=== PATIENT | female | born 1965 | race Caucasian/White ===

== ENCOUNTER 2018-03-09 06:58 | Inpatient (IN) | payer OTHER ==
[2018-03-09 07:19] VITALS: BMI 29.2
[2018-03-09] MEDS ORDERED: SODIUM CHLORIDE 0.9% 1000 ML INFUS.BAG IV ONE ×2 (07:28→18:45)
[2018-03-09] MEDS ORDERED: ACETAMINOPHEN INJECTION 100 ML IVPB ONE (07:43)
[2018-03-09] MEDS ORDERED: ACETAMINOPHEN 1000 MG/100 ML VIAL (NON FORMULARY) IVPB ONE ×2 (07:43→18:55)
[2018-03-09 08:14] LABS: URINE APPEARANCE Clear; URINE BILIRUBIN 1+ (NEGATIVE); URINE COLOR Amber; URINE GLUCOSE (UA) Negative (NEGATIVE); URINE KETONE Negative (NEGATIVE); URINE LEUK ESTERASE Negative (NEGATIVE); URINE NITRITE Negative (NEGATIVE); URINE PROTEIN 1+ (NEGATIVE); URINE UROBILINOGEN 0.2 (0.2-1.0)
[2018-03-09 08:32] LABS: BASO % 0.1 % (0-2.0); EOS % 0.4 % (0-4.5); HEMATOCRIT 40.1 % (32.4-45.2); HEMOGLOBIN 13.5 GM/dl (10.7-15.3); LYMPH % 7.6 % (8-40); MCHC 33.8 g/dl (32.0-36.0); MEAN CELL VOLUME 88.8 fl (80-96); MEAN PLT VOLUME 7.8 fl (7.5-11.1); MONO % 8.3 % (3.8-10.2); NEUT % 83.6 % (42.8-82.8); PLATELET COUNT 264 K/MM3 (134-434); RBC 4.52 M/mm3 (3.60-5.2); RDW 11.8 % (11.6-15.6); WHITE BLOOD COUNT 11.4 K/mm3 (4.0-10.8)
[2018-03-09 08:37] LABS: ALBUMIN 3.8 g/dl (3.4-5.0); ALK PHOS 75 U/L (45-117); ANION GAP 10 MMOL/L (8-16); BILIRUBIN,TOTAL 2.3 mg/dl (0.2-1); BLOOD UREA NITROGEN 13 mg/dl (7-18); CALCIUM 8.8 mg/dl (8.5-10); CHLORIDE 105 mmol/L (98-107); CO2 24 mmol/L (21-32); CREATININE 0.7 mg/dl (0.55-1.3); GLUCOSE,RANDOM 104 mg/dl (74-106); POTASSIUM 3.7 mmol/L (3.5-5.1); SGOT/AST 21 U/L (15-37); SGPT/ALT 21 U/L (13-61); SODIUM 139 mmol/L (136-145); TOT PROT 6.6 g/dl (6.4-8.2)
[2018-03-09 08:38] LABS: EPI CELLS 2+ /HPF; URINE RBC 40-60 /hpf (0-3)
[2018-03-09 08:39] LABS: URINE BACTERIA 3+ /hpf (NEGATIVE)
--- NOTE | 2018-03-09 09:11 | PDOC ---
History of Present Illness - General Chief Complaint: Pain Stated Complaint: LT GROIN/FLANK PAIN Time Seen by Provider: 03/09/18 07:27 History Source: Patient Exam Limitations: No Limitations - History of Present Illness Initial Comments: 03/09/18 09:04 52 yo F with h/o diverticulitis s/p partial colectomy , hysterectomy here with c /o llq pain and flank pain. pain started 5 days ago intermittent, crampy. worse wtih movement. denies hematuria or other urinary sxs, no n/v no f did have chills night prior. no change to bowel movement. does have pain with straining to have bowel movement. no bulging or pain near abd scars. no other complaints Past History - Past Medical History Allergies/Adverse Reactions: Allergies Allergy/AdvReac Type Severity Reaction Status Date / Time No Known Allergies Allergy Unverified 03/09/18 06:59 Home Medications: Ambulatory Orders Paroxetine Mesylate [Brisdelle] 7.5 mg PO DAILY 03/09/18 COPD: No - Suicide/Smoking/Psychosocial Hx Smoking History: Never smoked Have you smoked in the past 12 months: No Information on smoking cessation initiated: No Hx Alcohol Use: No Drug/Substance Use Hx: No Review of Systems - Review of Systems Constitutional: Yes: Chills. No: Diaphoresis, Fever HEENTM: No: Eye Pain, Blurred Vision Respiratory: No: Cough, Orthopnea, Shortness of Breath Cardiac (ROS): No: Chest Pain ABD/GI: Yes: Abd. Pain w/ defecation, Abdominal cramping. No: Nausea, Indigestion : No: Burning, Dysuria, Discharge Musculoskeletal: No: Back Pain Integumentary: No: Bruising Neurological: No: Headache, Numbness Psychiatric: No: Frequent Crying All Other Systems: Reviewed and Negative *Physical Exam - Vital Signs Last Vital Signs Temp Pulse Resp BP Pulse Ox 99.2 F 103 H 20 107/62 100 03/09/18 06:59 03/09/18 06:59 03/09/18 06:59 03/09/18 06:59 03/09/18 06:59 - Physical Exam Comments: 03/09/18 09:09 awake alert lungs clear bilaterally heart rrr no mrg abd soft mild llq ttp, left flank ttp, no rebound no guarding. small area redness, petechia llq, no eccymosis. no palp hernia. ext wwp no edema. no calf tenderness. Moderate Sedation - Procedure Monitoring Vital Signs: Procedure Monitoring Vital Signs Temperature 99.2 F 03/09/18 06:59 Pulse Rate 103 H 03/09/18 06:59 Respiratory Rate 20 03/09/18 06:59 Blood Pressure 107/62 03/09/18 06:59 O2 Sat by Pulse Oximetry (%) 100 03/09/18 06:59 ED Treatment Course - LABORATORY CBC & Chemistry Diagram: 03/09/18 07:46 03/09/18 07:46 - ADDITIONAL ORDERS Additional order review: Laboratory Results 03/09/18 03/09/18 07:46 07:31 Sodium 139 Potassium 3.7 Chloride 105 Carbon Dioxide 24 Anion Gap 10 BUN 13 Creatinine 0.7 Creat Clearance w eGFR > 60 Random Glucose 104 Calcium 8.8 Total Bilirubin 2.3 H AST 21 ALT 21 Alkaline Phosphatase 75 Total Protein 6.6 Albumin 3.8 Urine Color Olivia Urine Appearance Clear Urine pH 6.0 Ur Specific [place] 1.020 Urine Protein 1+ H Urine Glucose (UA) Negative Urine Ketones Negative Urine Blood 2+ H Urine Nitrite Negative Urine Bilirubin 1+ H Urine Urobilinogen 0.2 Ur Leukocyte Esterase Negative Urine RBC 40-60 Urine WBC 2-5 Ur Epithelial Cells 2+ Urine Bacteria 3+ 03/09/18 07:46 RBC 4.52 MCV 88.8 MCHC 33.8 RDW 11.8 MPV 7.8 Neutrophils % 83.6 H Lymphocytes % 7.6 L Monocytes % 8.3 Eosinophils % 0.4 Basophils % 0.1 - RADIOLOGY Radiology Studies Ordered: Category Date Time Status ABDOMEN & PELVIS CT WITH CONTR [CT] Stat CT Scan 03/09/18 07:29 Ordered - Medications Given in the ED: ED Medications Discontinued Medications Generic Name Dose Route Start Last Admin Trade Name Freq PRN Reason Stop Dose Admin Acetaminophen 1,000 mg 03/09/18 07:43 03/09/18 07:47 Ofirmev Injection - IVPB 03/09/18 07:44 1,000 mg ONCE ONE Administration Sodium Chloride 1,000 ml 03/09/18 07:28 03/09/18 07:47 Normal Saline - IV 03/09/18 07:29 1,000 ml ONCE ONE Administration Medical Decision Making - Medical Decision Making 03/09/18 09:11 differential diverticulitis, sbo, pyleonephritis, renal colic, hernia, although no palp hernia on exam. plan ct a/p labs ua . pain control with tylenol. ivf. 03/09/18 10:04 focused ED us RUQ performed, indication elevated Bili gallbladder scanned in two planes. no stones, wall thickening , edema or pericholecystic fluid noted. normal CBD 2.8 cm normal wall thickness < 4mm impression: normal gallbladder bilateral renal exam performed. indcation flank pain. bilateral kidneys scanned using phased array probe no cyst, no hydronephrosis noted. no peritoneal free fluid. impression: normal renal ultrasound FAST no free abdominal fluid, no pericardial fluid. no thoracic free fluid. plan ct a/p with iv contrast . will add LDH as bilirubin elevated. pt not anemic . awaiting ct a/p 03/09/18 11:45 pt with diverticultiis. significant pain. given morphine. paged. pt dr dr lantigua. paged. awaiting call back. hospitalist paged for admission observation due to significant pain. *DC/Admit/Observation/Transfer Diagnosis at time of Disposition: Diverticulitis - Discharge Dispostion Condition at time of disposition: Stable Decision to Admit order: Yes - Referrals Referrals: Rajeev Lantigua [Primary Care Provider] - - Patient Instructions - Post Discharge Activity
[2018-03-09 10:40] LABS: BILIRUBIN,DIRECT 0.3 mg/dL (0.0-0.2)
[2018-03-09] MEDS ORDERED: CIPROFLOXACIN 400 MG/D5W 400 MG/200 ML IVPB IVPB ONE (11:42)
[2018-03-09] MEDS ORDERED: morphine CARPU-JECT 4 MG/1 ML DISP.SYRIN IVPUSH ONE (11:42)
[2018-03-09] MEDS ORDERED: morphine SULFATE 4 MG/ML VIAL ONE (11:52)
[2018-03-09] MEDS: SODIUM CHLORIDE 1,000 ML IV SCH (13:08)
[2018-03-09 13:22] LABS: LIPASE 187 U/L (73-393)
[2018-03-09] MEDS: morphine CARPU-JECT 2 MG/1 ML DISP.SYRIN IVPUSH PRN (15:10)
[2018-03-09] MEDS ORDERED: morphine CARPU-JECT 2 MG/1 ML DISP.SYRIN ONE (15:12)
--- NOTE | 2018-03-09 16:04 | HP ---
CHIEF COMPLAINT:LLQ abd pain PCP:Dr. Lantigua ([facility]) HISTORY OF PRESENT ILLNESS: Jane Matamoros is a 52 yo F with h/o diverticulitis s/p partial colectomy , hysterectomy here with c/o llq pain and flank pain. pain started 5 days ago intermittent, crampy. worse with movement. denies hematuria or other urinary sxs, no n/v no f did have chills night prior. no change to bowel movement. does have pain with straining to have bowel movement. no bulging or pain near abd scars. no other complaints, CT shows diverticulitis ER course was notable for: (1)no fever (2)abd pain (3) Recent Travel: PAST MEDICAL HISTORY:hx of diverticulitis PAST SURGICAL HISTORY:s/p partial colectomy , hysterectomy, hernia repair Social History: Smoking: Alcohol:denies Drugs: Denies Family History: Allergies No Known Allergies Allergy (Unverified 03/09/18 06:59) HOME MEDICATIONS: Home Medications Medication Instructions Recorded Paroxetine Mesylate [Brisdelle] 7.5 mg PO DAILY 03/09/18 REVIEW OF SYSTEMS CONSTITUTIONAL: Absent: fever, chills, diaphoresis, generalized weakness, malaise, loss of appetite, weight change HEENT: Absent: rhinorrhea, nasal congestion, throat pain, throat swelling, difficulty swallowing, mouth swelling, ear pain, eye pain, visual changes CARDIOVASCULAR: Absent: chest pain, syncope, palpitations, irregular heart rate, lightheadedness , peripheral edema RESPIRATORY: Absent: cough, shortness of breath, dyspnea with exertion, orthopnea, wheezing, stridor, hemoptysis GASTROINTESTINAL: Absent: abdominal pain, abdominal distension, nausea, vomiting, diarrhea, constipation, melena, hematochezia GENITOURINARY: Absent: dysuria, frequency, urgency, hesitancy, hematuria, flank pain, genital pain MUSCULOSKELETAL: Absent: myalgia, arthralgia, joint swelling, back pain, neck pain SKIN: Absent: rash, itching, pallor HEMATOLOGIC/IMMUNOLOGIC: Absent: easy bleeding, easy bruising, lymphadenopathy, frequent infections ENDOCRINE: Absent: unexplained weight gain, unexplained weight loss, heat intolerance, cold intolerance NEUROLOGIC: Absent: headache, focal weakness or paresthesias, dizziness, unsteady gait, seizure, mental status changes, bladder or bowel incontinence PSYCHIATRIC: Absent: anxiety, depression, suicidal or homicidal ideation, hallucinations. PHYSICAL EXAMINATION Vital Signs - 24 hr 03/09/18 03/09/18 03/09/18 06:59 11:20 13:12 Temperature 99.2 F 98.6 F 98.6 F Pulse Rate 103 H Pulse Rate [ 69 60 Left] Respiratory 20 20 20 Rate Blood Pressure 107/62 Blood Pressure 99/59 L 99/59 L [Right Arm] O2 Sat by Pulse 100 98 99 Oximetry (%) 03/09/18 14:41 Temperature 97.7 F Pulse Rate 78 Pulse Rate [ Left] Respiratory 18 Rate Blood Pressure 99/52 L Blood Pressure [Right Arm] O2 Sat by Pulse Oximetry (%) GENERAL: Awake, alert, and fully oriented, in no acute distress. HEAD: Normal with no signs of trauma. EYES: Pupils equal, round and reactive to light, extraocular movements intact, sclera anicteric, conjunctiva clear. No lid lag. EARS, NOSE, THROAT: Ears normal, nares patent, oropharynx clear without exudates. Moist mucous membranes. NECK: Normal range of motion, supple without lymphadenopathy, JVD, or masses. LUNGS: Breath sounds equal, clear to auscultation bilaterally. No wheezes, and no crackles. No accessory muscle use. HEART: Regular rate and rhythm, normal S1 and S2 without murmur, rub or gallop. ABDOMEN: Soft, nontender, not distended, normoactive bowel sounds, no guarding, no rebound, no masses. No hepatomegaly or splenomegaly. MUSCULOSKELETAL: Normal range of motion at all joints. No bony deformities or tenderness. No CVA tenderness. UPPER EXTREMITIES: 2+ pulses, warm, well-perfused. No cyanosis. No clubbing. No peripheral edema. LOWER EXTREMITIES: 2+ pulses, warm, well-perfused. No calf tenderness. No peripheral edema. NEUROLOGICAL: Cranial nerves II-XII intact. Normal speech. Normal gait. PSYCHIATRIC: Cooperative. Good eye contact. Appropriate mood and affect. SKIN: Warm, dry, normal turgor, no rashes or lesions noted, normal capillary refill. Laboratory Results - last 24 hr 03/09/18 03/09/18 03/09/18 07:31 07:35 07:46 WBC 11.4 H RBC 4.52 Hgb 13.5 Hct 40.1 MCV 88.8 MCH 30.0 MCHC 33.8 RDW 11.8 Plt Count 264 MPV 7.8 Absolute Neuts (auto) 9.6 Neutrophils % 83.6 H Lymphocytes % 7.6 L Monocytes % 8.3 Eosinophils % 0.4 Basophils % 0.1 Sodium Potassium Chloride Carbon Dioxide Anion Gap BUN Creatinine Creat Clearance w eGFR Random Glucose Calcium Total Bilirubin Direct Bilirubin 0.3 H AST ALT Alkaline Phosphatase LD Total 173 Total Protein Albumin Lipase Urine Color Olivia Urine Appearance Clear Urine pH 6.0 Ur Specific [place] 1.020 Urine Protein 1+ H Urine Glucose (UA) Negative Urine Ketones Negative Urine Blood 2+ H Urine Nitrite Negative Urine Bilirubin 1+ H Urine Urobilinogen 0.2 Ur Leukocyte Esterase Negative Urine RBC 40-60 Urine WBC 2-5 Ur Epithelial Cells 2+ Urine Bacteria 3+ 03/09/18 07:46 WBC RBC Hgb Hct MCV MCH MCHC RDW Plt Count MPV Absolute Neuts (auto) Neutrophils % Lymphocytes % Monocytes % Eosinophils % Basophils % Sodium 139 Potassium 3.7 Chloride 105 Carbon Dioxide 24 Anion Gap 10 BUN 13 Creatinine 0.7 Creat Clearance w eGFR > 60 Random Glucose 104 Calcium 8.8 Total Bilirubin 2.3 H Direct Bilirubin AST 21 ALT 21 Alkaline Phosphatase 75 LD Total Total Protein 6.6 Albumin 3.8 Lipase 187 Urine Color Urine Appearance Urine pH Ur Specific [place] Urine Protein Urine Glucose (UA) Urine Ketones Urine Blood Urine Nitrite Urine Bilirubin Urine Urobilinogen Ur Leukocyte Esterase Urine RBC Urine WBC Ur Epithelial Cells Urine Bacteria ASSESSMENT/PLAN: Coretta Matamoros is a 52 h/o diverticulitis s/p partial colectomy , hysterectomy admitted under observation for Admitting Diagnosis Acute Diverticulitis A/P: #Acute diverticulitis -admit under observation -NPO -pain mgt, morphine 2mg -IVF -IV cipro, flagyl -cultures pending #menopause, hot flashes -takes paroxetine Full Code Dispo: requires inpt treatment DVT prophylaxis Heparin SQ Visit type - Emergency Visit Emergency Visit: Yes ED Registration Date: 03/09/18 Care time: The patient presented to the Emergency Department on the above date and was hospitalized for further evaluation of their emergent condition. - New Patient This patient is new to me today: Yes Date on this admission: 03/09/18 - Critical Care Critical Care patient: No
--- NOTE | 2018-03-09 16:50 | EKG ---
Test Reason : Blood Pressure : / mmHG Vent. Rate : 073 BPM Atrial Rate : 073 BPM P-R Int : 164 ms QRS Dur : 078 ms QT Int : 426 ms P-R-T Axes : 047 023 008 degrees QTc Int : 469 ms NORMAL SINUS RHYTHM NORMAL ECG NO PREVIOUS ECGS AVAILABLE Confirmed by Karlie Ardon ([id number]) on 03/09/2018 4:49:56 PM Referred By: Sukhdeep Grigsby Confirmed By:Karlie Ardon
[2018-03-09] MEDS ORDERED: DEXTROSE 5%-WATER - 50 ML IVPB ONE (16:58)
[2018-03-09] MEDS ORDERED: PIPERACILLIN/TAZOBACTAM 3.375 GM VIAL IVPB ONE (16:58)
[2018-03-09] MEDS: PIPERACILLIN/TAZOB 3.375 GM 3.375 GM in DEXTROSE 5%-WATER - 50 ML IVPB SCH (17:17)
[2018-03-09 19:54] LABS: BASO % 0.1 % (0-2.0); EOS % 0.3 % (0-4.5); HEMATOCRIT 42.3 % (32.4-45.2); HEMOGLOBIN 14.1 GM/dl (10.7-15.3); LYMPH % 11.8 % (8-40); MCH 29.6 pg (25.7-33.7); MCHC 33.3 g/dl (32.0-36.0); MEAN CELL VOLUME 89.1 fl (80-96); MEAN PLT VOLUME 7.7 fl (7.5-11.1); MONO % 3.3 % (3.8-10.2); NEUT % 84.5 % (42.8-82.8); PLATELET COUNT 334 K/MM3 (134-434); RBC 4.75 M/mm3 (3.60-5.2); RDW 11.9 % (11.6-15.6); WHITE BLOOD COUNT 14.2 K/mm3 (4.0-10.8)
[2018-03-09 19:58] LABS: ALBUMIN 3.7 g/dl (3.4-5.0); ALK PHOS 85 U/L (45-117); ANION GAP 5 MMOL/L (8-16); BILIRUBIN,TOTAL 2.6 mg/dl (0.2-1); BLOOD UREA NITROGEN 8 mg/dl (7-18); CALCIUM 8.6 mg/dl (8.5-10); CHLORIDE 107 mmol/L (98-107); CO2 25 mmol/L (21-32); CREATININE 0.7 mg/dl (0.55-1.3); GLUCOSE,RANDOM 94 mg/dl (74-106); SGOT/AST 27 U/L (15-37); SGPT/ALT 23 U/L (13-61); SODIUM 137 mmol/L (136-145); TOT PROT 6.9 g/dl (6.4-8.2)
[2018-03-09] MEDS ORDERED: SODIUM CHLORIDE 1,000 ML IV STA (20:51)
[2018-03-09] MEDS: HEPARIN NA (PORCINE) 5,000 UNITS/ML 1ML VIAL SQ SCH (21:26)
[2018-03-09] MEDS ORDERED: CIPROFLOXACIN 400 MG/D5W 400 MG/200 ML IVPB IVPB SCH (22:00)
[2018-03-10] MEDS ORDERED: ACETAMINOPHEN 1000 MG/100 ML VIAL (NON FORMULARY) IVPB PRN (01:00)
[2018-03-10] MEDS ORDERED: PIPERACILLIN/TAZOBACTAM 3.375 GM VIAL IVPB ONE ×3 (01:52→17:15)
[2018-03-10] MEDS ORDERED: DEXTROSE 5%-WATER - 50 ML IVPB ONE ×3 (01:53→17:15)
[2018-03-10] MEDS: PIPERACILLIN/TAZOB 3.375 GM 3.375 GM in DEXTROSE 5%-WATER - 50 ML IVPB SCH ×3 (02:00→17:21)
[2018-03-10] MEDS: morphine CARPU-JECT 2 MG/1 ML DISP.SYRIN IVPUSH PRN (09:42)
[2018-03-10] MEDS: SODIUM CHLORIDE 1,000 ML IV SCH ×2 (09:44→13:43)
[2018-03-10] MEDS: HEPARIN NA (PORCINE) 5,000 UNITS/ML 1ML VIAL SQ SCH ×2 (09:50→21:56)
[2018-03-10 10:03] LABS: HEMATOCRIT 35.4 % (32.4-45.2); HEMOGLOBIN 11.7 GM/dl (10.7-15.3); MCH 29.5 pg (25.7-33.7); MEAN CELL VOLUME 89.5 fl (80-96); MEAN PLT VOLUME 7.8 fl (7.5-11.1); PLATELET COUNT 220 K/MM3 (134-434); RBC 3.96 M/mm3 (3.60-5.2); RDW 12.1 % (11.6-15.6); WHITE BLOOD COUNT 9.9 K/mm3 (4.0-10.8)
[2018-03-10 10:29] LABS: ALBUMIN 2.8 g/dl (3.4-5.0); ALK PHOS 69 U/L (45-117); ANION GAP 9 MMOL/L (8-16); BILIRUBIN,TOTAL 2.3 mg/dl (0.2-1); BLOOD UREA NITROGEN 7 mg/dl (7-18); CALCIUM 7.9 mg/dl (8.5-10); CHLORIDE 108 mmol/L (98-107); CO2 22 mmol/L (21-32); CREATININE 0.6 mg/dl (0.55-1.3); GLUCOSE,RANDOM 66 mg/dl (74-106); MAGNESIUM 1.9 mg/dL (1.8-2.4); POTASSIUM 3.3 mmol/L (3.5-5.1); SGOT/AST 22 U/L (15-37); SGPT/ALT 19 U/L (13-61); SODIUM 139 mmol/L (136-145); TOT PROT 5.4 g/dl (6.4-8.2)
[2018-03-10] MEDS ORDERED: POTASSIUM CHLORIDE TABS 20 MEQ TABLET.ER (FP) PO ONE (10:43)
--- NOTE | 2018-03-10 11:23 | CON.ID ---
Consult - History of Present Illness History of Present Illness: 53 y.o. female with PMH of recurrent diverticulitis s/p partial colectomy 8-9 yrs ago and hysterectomy presents with c/o LLQ pain that began 4 days [employer]. Pt states the pain progressively worsened and was crampy 10/10 intensity and she felt bloated. She denied fever/chills or n/v/d or bloody BMs at home during this period. In the ER patient was noted to mild leukocytosis and was afebrile but last night had temp of 102.2F and was hypotensive. Today she states she had several loose BMs which began post contrast for CT abdomen. Currently her abdominal pain is controlled and she is afebrile. She has no other specific complaints. is at bedside. - History Source History Provided By: Patient Limitations to Obtaining History: No Limitations - Past Medical History Gastrointestinal: Yes: Diverticulitis ...LMP: 02/05/07 ...LMP Comment: s/p hysterectomy - Past Surgical History Past Surgical History: Yes: Colectomy (partial), Hysterectomy - Alcohol/Substance Use Hx Alcohol Use: No - Smoking History Smoking history: Never smoked Have you smoked in the past 12 months: No Home Medications - Allergies Allergies/Adverse Reactions: Allergies Allergy/AdvReac Type Severity Reaction Status Date / Time No Known Allergies Allergy Unverified 03/09/18 06:59 - Home Medications Home Medications: Ambulatory Orders Paroxetine Mesylate [Brisdelle] 7.5 mg PO DAILY 03/09/18 Review of Systems - Review of Systems Constitutional: reports: No Symptoms. denies: Chills, Diaphoresis, Fever, Lethargy, Loss of Appetite, Malaise, Night Sweats, Unintentional Wgt. Loss, Weakness, Other Eyes: reports: No Symptoms. denies: Blind Spots, Blurred Vision, Double Vision , Eye Pain, Floaters, Photophobia, Recent Change in Vision, Other HENT: reports: No Symptoms. denies: Difficult Swallowing, Ear Discharge, Ear Pain, Epistaxis, Gingival Bleeding, Hearing Loss, Mouth Swelling, Nasal Congestion, Ocular Prosthesis, Throat Pain, Toothache, Ringing in Ears, Other Neck: reports: No Symptoms. denies: Decreased ROM, Lumps, Pain on Movement, Stiffness, Swollen Glands, Tenderness, Other Cardiovascular: reports: No Symptoms. denies: Chest Pain, Edema, Palpitations, Shortness of Breath, Other Respiratory: reports: No Symptoms. denies: Cough, Exercise Intolerance, Hemoptysis, Orthopnea, PND, Snoring, SOB, SOB on Exertion, Wheezing, Other Gastrointestinal: reports: Abdominal Pain (Lt abdomen to flank), Diarrhea Genitourinary: reports: No Symptoms. denies: Burning, Discharge, Dysuria, Flank Pain, Frequency, Hematuria, Incontinence, Lesions, Menses, Pain, Testicular Mass, Testicular Pain, Testicular Swelling, Urgency, Vaginal Bleeding , Other Breasts: reports: No Symptoms Reported. denies: See HPI, Breast Implants, Discharge from Nipple, Lumps, Pain, Skin Changes, Other Musculoskeletal: reports: No Symptoms. denies: Back Pain, Crepitus, Decreased ROM, Extremity Pain, Joint Pain, Joint Swelling, Muscle Pain, Muscle Cramps, Muscle Weakness, Other Integumentary: reports: No Symptoms. denies: Blister, Bruising, Change in Color , Eczema, Erythema, Incision, Lesions, Lump, Pallor, Pruritis, Rash, Wound, Other Neurological: reports: No Symptoms. denies: Change in LOC, Change in Speech, Confusion, Dizziness, Headache, Incoordination, Numbness, Parasthesia, Pre- Existing Deficit, Seizure, Syncope, Tremors, Unsteady Gait, Weakness, Other Endocrine: reports: No Symptoms. denies: Excessive Sweating, Flushing, Increased Hunger, Increased Thirst, Intolerance to Cold, Intolerance to Heat, Unexplained Weight Gain, Unexplained Weight Loss, Other Hematology/Lymphatic: reports: No Symptoms. denies: Easily Bruised, Excessive Bleeding, Swollen Glands, Other Psychiatric: reports: No Symptoms. denies: Altered Sleep Pattern, Anxiety, Depression, Hallucinations, Panic, Paranoia, Suicidal, Other Pain Intensity: 1 Physical Exam Vital Signs: Vital Signs Temperature 98.5 F 03/10/18 09:54 Pulse Rate 85 03/10/18 09:54 Respiratory Rate 18 03/10/18 09:54 Blood Pressure 109/52 L 03/10/18 09:54 O2 Sat by Pulse Oximetry (%) 95 03/10/18 09:00 Constitutional: Yes: No Distress, Calm Eyes: Yes: Conjunctiva Clear, EOM Intact HENT: Yes: Atraumatic, Normocephalic Neck: Yes: Supple, Trachea Midline Cardiovascular: Yes: Regular Rate and Rhythm Respiratory: Yes: CTA Bilaterally Gastrointestinal: Yes: Normal Bowel Sounds, Soft, Tenderness (Lt abdomen/flank ttp) Renal/: Yes: WNL. No: Anuria, Bladder Distention, CVA Tenderness - Left, CVA Tenderness - Right, Castillo Present, Hematuria, Incontinence, Menses Present, Oliguria, Polyuria, , Scrotal Edema, Urethral Discharge, Vaginal Bleeding, Vaginal Discharge, Other Musculoskeletal: Yes: WNL. No: Back Pain, Joint Stiffness, Joint Swelling, Muscle Pain, Muscle Weakness, Other Extremities: Yes: WNL. No: Amputation, Calf Tenderness, Cold, Cool, Cyanosis, Deformity, Delayed Capillary Refill, Erythema, External Rotation, Internal Rotation, Pallor, Shortened, Other Edema: No Integumentary: Yes: WNL Neurological: Yes: Alert, Oriented Psychiatric: Yes: Alert Labs: CBC, BMP 03/10/18 08:00 03/10/18 08:00 Microbiology 03/09/18 07:31 Urine - Urine Clean Catch Urine Culture - Final Contaminated: Please Repeat Blood cultures - pending Imaging - Results Cat Scan: Report Reviewed (distal descending colon diverticulitis) Problem List - Problems (1) Diverticulitis Code(s): K57.92 - DVTRCLI OF INTEST, PART UNSP, W/O PERF OR ABSCESS W/O BLEED Assessment/Plan 52 y.o. female with PMH of diverticulitis s/p partial colectomy and hysterectomy presents with c/o severe LLQ/flank tenderness. Febrile to 102.2 last night and leukocytosis and hypotension Acute diverticulitis -- continue Zosyn -- monitor wbc/temperatures -- follow up blood cultures -- BP currently stable, afebrile this a.m. Will follow Thank you
--- NOTE | 2018-03-10 11:27 | PN ---
Physical Exam: SUBJECTIVE: Patient seen and examined, family member present, pt still with abd pain on movement, requiring IV pain med, having diarrhea since CT contrast yesterday, GI consult placed. WBC trending down OBJECTIVE: Vital Signs Period Temp Pulse Resp BP Sys/[place] Pulse Ox Last 24 Hr 97.7 F-102.2 F 60-130 18-24 85-109/46-59 95-99 GENERAL: The patient is awake, alert, and fully oriented, in no acute distress. HEAD: Normal with no signs of trauma. EYES: PERRL, extraocular movements intact, sclera anicteric, conjunctiva clear. No ptosis. ENT: Ears normal, nares patent, oropharynx clear without exudates, moist mucous membranes. NECK: Trachea midline, full range of motion, supple. LUNGS: Breath sounds equal, clear to auscultation bilaterally, no wheezes, no crackles, no accessory muscle use. HEART: Regular rate and rhythm, S1, S2 without murmur, rub or gallop. ABDOMEN: Soft, nontender, nondistended, normoactive bowel sounds, no guarding, no rebound, no hepatosplenomegaly, no masses. EXTREMITIES: 2+ pulses, warm, well-perfused, no edema. NEUROLOGICAL: Cranial nerves II through XII grossly intact. Normal speech, gait not observed. PSYCH: Normal mood, normal affect. SKIN: Warm, dry, normal turgor, no rashes or lesions noted Laboratory Results - last 24 hr 03/09/18 03/09/18 03/09/18 07:46 19:05 19:05 WBC 14.2 H RBC 4.75 Hgb 14.1 Hct 42.3 MCV 89.1 MCH 29.6 MCHC 33.3 RDW 11.9 Plt Count 334 MPV 7.7 Absolute Neuts (auto) 12.0 Neutrophils % 84.5 H Lymphocytes % 11.8 Monocytes % 3.3 L Eosinophils % 0.3 Basophils % 0.1 Sodium 137 Potassium 4.0 Chloride 107 Carbon Dioxide 25 Anion Gap 5 L BUN 8 Creatinine 0.7 Creat Clearance w eGFR > 60 Random Glucose 94 Lactic Acid Calcium 8.6 Magnesium Total Bilirubin 2.6 H AST 27 ALT 23 Alkaline Phosphatase 85 D Total Protein 6.9 Albumin 3.7 Lipase 187 03/09/18 03/09/18 03/10/18 19:05 23:20 08:00 WBC 9.9 RBC 3.96 Hgb 11.7 Hct 35.4 D MCV 89.5 MCH 29.5 MCHC 33.0 RDW 12.1 Plt Count 220 MPV 7.8 Absolute Neuts (auto) Neutrophils % Lymphocytes % Monocytes % Eosinophils % Basophils % Sodium Potassium Chloride Carbon Dioxide Anion Gap BUN Creatinine Creat Clearance w eGFR Random Glucose Lactic Acid 3.0 H* 0.6 Calcium Magnesium Total Bilirubin AST ALT Alkaline Phosphatase Total Protein Albumin Lipase 03/10/18 08:00 WBC RBC Hgb Hct MCV MCH MCHC RDW Plt Count MPV Absolute Neuts (auto) Neutrophils % Lymphocytes % Monocytes % Eosinophils % Basophils % Sodium 139 Potassium 3.3 L Chloride 108 H Carbon Dioxide 22 Anion Gap 9 BUN 7 Creatinine 0.6 Creat Clearance w eGFR > 60 Random Glucose 66 L Lactic Acid Calcium 7.9 L Magnesium 1.9 Total Bilirubin 2.3 H AST 22 ALT 19 Alkaline Phosphatase 69 D Total Protein 5.4 L Albumin 2.8 L Lipase Active Medications Generic Name Dose Route Start Last Admin Trade Name Freq PRN Reason Stop Dose Admin Acetaminophen 1,000 mg 03/10/18 01:00 03/10/18 09:43 Ofirmev Injection - IVPB 1,000 mg Q6H PRN Administration FEVER Heparin Sodium (Porcine) 5,000 unit 03/09/18 22:00 03/10/18 09:50 Heparin - SQ Not Given BID RICH Sodium Chloride 1,000 mls @ 75 mls/hr 03/09/18 12:30 03/10/18 09:44 Normal Saline - IV 75 mls/hr ASDIR RICH Administration Piperacillin Sod/Tazobactam 50 mls @ 100 mls/hr 03/09/18 18:00 03/10/18 09:44 Sod 3.375 gm/ Dextrose IVPB 100 mls/hr Q8H-IV RICH Administration Morphine Sulfate 2 mg 03/09/18 15:04 03/10/18 09:42 Morphine Injection - IVPUSH 2 mg Q4H PRN Administration PAIN LEVEL 7 - 10 Non-Formulary Medication 7.5 mg 03/10/18 10:00 Paroxetine Mesylate [Brisdelle] PO DAILY [facility] ASSESSMENT/PLAN: Coretta Matamoros is a 52 h/o diverticulitis s/p partial colectomy , hysterectomy admitted under observation for Admitting Diagnosis Acute Diverticulitis A/P: #Acute diverticulitis -will adv diet to clears -pain mgt, morphine 2mg -IVF -IV zosyn -GI, ID consult -blood cx pending -urine cx contaminated #menopause, hot flashes -takes paroxetine Full Code Dispo: requires inpt treatment DVT prophylaxis Heparin SQ Visit type - Emergency Visit Emergency Visit: Yes ED Registration Date: 03/09/18 Care time: The patient presented to the Emergency Department on the above date and was hospitalized for further evaluation of their emergent condition. - New Patient This patient is new to me today: No - Critical Care Critical Care patient: No
[2018-03-10] MEDS: PAROXETINE MESYLATE 7.5 MG PO SCH (11:28)
[2018-03-10] MEDS ORDERED: morphine SULFATE 4 MG/ML VIAL IVPUSH PRN (11:40)
[2018-03-10] MEDS: SODIUM CHLORIDE 0.9% 1000 ML INFUS.BAG IV SCH (13:44)
[2018-03-10] MEDS: ONDANSETRON 4 MG/2 ML VIAL IVPUSH PRN ×2 (14:12→20:20)
[2018-03-10] MEDS: ACETAMINOPHEN 325 MG TABLET (FP) PO PRN (17:21)
[2018-03-11] MEDS: PIPERACILLIN/TAZOB 3.375 GM 3.375 GM in DEXTROSE 5%-WATER - 50 ML IVPB SCH ×3 (02:24→18:26)
[2018-03-11] MEDS ORDERED: PIPERACILLIN/TAZOBACTAM 3.375 GM VIAL IVPB ONE ×3 (03:10→17:47)
[2018-03-11] MEDS ORDERED: DEXTROSE 5%-WATER - 50 ML IVPB ONE ×3 (03:10→17:47)
[2018-03-11] MEDS: SODIUM CHLORIDE 0.9% 1000 ML INFUS.BAG IV SCH (10:00)
[2018-03-11 10:21] LABS: HEMATOCRIT 37.6 % (32.4-45.2); HEMOGLOBIN 12.7 GM/dl (10.7-15.3); MCH 29.5 pg (25.7-33.7); MCHC 33.7 g/dl (32.0-36.0); MEAN CELL VOLUME 87.4 fl (80-96); MEAN PLT VOLUME 7.1 fl (7.5-11.1); PLATELET COUNT 311 K/MM3 (134-434); RDW 11.8 % (11.6-15.6); WHITE BLOOD COUNT 7.2 K/mm3 (4.0-10.8)
[2018-03-11] MEDS: PAROXETINE MESYLATE 7.5 MG PO SCH (10:43)
[2018-03-11 10:47] LABS: ALBUMIN 3.2 g/dl (3.4-5.0); ALK PHOS 70 U/L (45-117); ANION GAP 10 MMOL/L (8-16); BILIRUBIN,DIRECT 0.2 mg/dL (0.0-0.2); BILIRUBIN,TOTAL 1.5 mg/dl (0.2-1); CALCIUM 8.6 mg/dl (8.5-10); CHLORIDE 104 mmol/L (98-107); CO2 23 mmol/L (21-32); CREATININE 0.7 mg/dl (0.55-1.3); GLUCOSE,RANDOM 110 mg/dl (74-106); MAGNESIUM 1.9 mg/dL (1.8-2.4); POTASSIUM 3.3 mmol/L (3.5-5.1); SGOT/AST 22 U/L (15-37); SGPT/ALT 19 U/L (13-61); SODIUM 137 mmol/L (136-145); TOT PROT 6.1 g/dl (6.4-8.2)
[2018-03-11 10:53] LABS: BLOOD UREA NITROGEN < 5 mg/dl (7-18)
[2018-03-11 11:12] LABS: PLATELET ESTIMATE ADEQUATE
[2018-03-11] MEDS: HEPARIN NA (PORCINE) 5,000 UNITS/ML 1ML VIAL SQ SCH ×2 (11:27→21:11)
--- NOTE | 2018-03-11 12:15 | PN ---
Progress Note (short form) - Note Progress Note: Patient seen and consult dictated. Patient with acute diverticulitis (left-sided ); clinically improving on antibiotics. Had slight elevation of T Bili (otherwise normal LFTs) and sono c/w fatty liver. Suspect elevated bilirubin may reflect Gilbert's syndrome and is of a benign nature. Level now normal (likely went up in setting of acute infection) Agree with antibiotics IV and can start on PO liquids today. Still with some LLQ pain but diminished and WBC also improved. Will follow
[2018-03-11] MEDS: SODIUM CHLORIDE 1,000 ML IV SCH (12:30)
[2018-03-11] MEDS: POTASSIUM CHLORIDE TABS 20 MEQ TABLET.ER (FP) PO SCH ×2 (13:05→21:11)
--- NOTE | 2018-03-11 15:11 | PN ---
Progress Note, Physician - Current Medication List Current Medications: Active Medications Acetaminophen (Ofirmev Injection -) 1,000 mg IVPB Q6H PRN PRN Reason: FEVER Last Admin: 03/10/18 09:43 Dose: 1,000 mg Acetaminophen (Tylenol -) 650 mg PO Q6H PRN PRN Reason: PAIN LEVEL 1 - 3 Last Admin: 03/10/18 17:21 Dose: 650 mg Heparin Sodium (Porcine) (Heparin -) 5,000 unit SQ BID RICH Last Admin: 03/11/18 11:27 Dose: Not Given Sodium Chloride (Normal Saline -) 1,000 mls @ 75 mls/hr IV ASDIR RICH Last Admin: 03/11/18 12:30 Dose: 75 mls/hr Piperacillin Sod/Tazobactam (Sod 3.375 gm/ Dextrose) 50 mls @ 100 mls/hr IVPB Q8H-IV RICH; Protocol Last Admin: 03/11/18 11:28 Dose: 100 mls/hr Morphine Sulfate (Morphine Injection -) 2 mg IVPUSH Q4H PRN PRN Reason: PAIN LEVEL 7 - 10 Last Admin: 03/10/18 09:42 Dose: 2 mg Non-Formulary Medication (Paroxetine Mesylate [Brisdelle]) 7.5 mg PO DAILY [facility] Last Admin: 03/11/18 10:43 Dose: 7.5 mg Ondansetron HCl (Zofran Injection) 4 mg IVPUSH Q6H PRN PRN Reason: NAUSEA Last Admin: 03/10/18 20:20 Dose: 4 mg Potassium Chloride (K-Dur -) 40 meq PO Q6H RICH Stop: 03/11/18 19:01 Sodium Chloride (Normal Saline -) 100 ml IV DAILY RICH Last Admin: 03/11/18 10:00 Dose: 100 ml - Objective Vital Signs: Vital Signs Temperature 99.3 F 03/11/18 14:21 Pulse Rate 68 03/11/18 14:21 Respiratory Rate 16 03/11/18 14:21 Blood Pressure 103/67 03/11/18 14:21 O2 Sat by Pulse Oximetry (%) 97 03/11/18 14:21 Labs: CBC, BMP 03/11/18 10:01 03/11/18 10:01
--- NOTE | 2018-03-11 16:28 | PN ---
Physical Exam: SUBJECTIVE: Patient seen and examined sitting on edge of bed. Feeling better. OBJECTIVE: Vital Signs Period Temp Pulse Resp BP Sys/Mckeon Pulse Ox Last 24 Hr 98.0 F-99.8 F 66-75 16-20 101-118/54-67 97-97 GENERAL: The patient is awake, alert, and fully oriented, in no acute distress. LUNGS: Breath sounds equal, clear to auscultation bilaterally, no wheezes, no crackles, no accessory muscle use. HEART: Regular rate and rhythm, S1, S2 without murmur, rub or gallop. ABDOMEN: Mild LLQ and LMQ tenderness EXTREMITIES: 2+ pulses, warm, well-perfused, no edema. NEUROLOGICAL: Cranial nerves II through XII grossly intact. Laboratory Results - last 24 hr 03/11/18 03/11/18 10:01 10:01 WBC 7.2 RBC 4.30 Hgb 12.7 Hct 37.6 MCV 87.4 MCH 29.5 MCHC 33.7 RDW 11.8 Plt Count 311 MPV 7.1 L Absolute Neuts (auto) 5.8 Neutrophils % No Result Required. Neutrophils % (Manual) 80.0 Band Neutrophils % 2.0 Lymphocytes % No Result Required. Lymphocytes % (Manual) 13.0 Monocytes % (Manual) 4 Eosinophils % (Manual) 1.0 Platelet Estimate Adequate Sodium 137 Potassium 3.3 L Chloride 104 Carbon Dioxide 23 Anion Gap 10 BUN < 5 L Creatinine 0.7 Creat Clearance w eGFR > 60 Random Glucose 110 H Calcium 8.6 Magnesium 1.9 Total Bilirubin 1.5 H Direct Bilirubin 0.2 AST 22 ALT 19 Alkaline Phosphatase 70 Total Protein 6.1 L Albumin 3.2 L Active Medications Generic Name Dose Route Start Last Admin Trade Name Jarredq PRN Reason Stop Dose Admin Acetaminophen 1,000 mg 03/10/18 01:00 03/10/18 09:43 Ofirmev Injection - IVPB 1,000 mg Q6H PRN Administration FEVER Acetaminophen 650 mg 03/10/18 11:40 03/10/18 17:21 Tylenol - PO 650 mg Q6H PRN Administration PAIN LEVEL 1 - 3 Heparin Sodium (Porcine) 5,000 unit 03/09/18 22:00 03/11/18 11:27 Heparin - SQ Not Given BID RICH Sodium Chloride 1,000 mls @ 75 mls/hr 03/09/18 12:30 03/11/18 12:30 Normal Saline - IV 75 mls/hr ASDIR RICH Administration Piperacillin Sod/Tazobactam 50 mls @ 100 mls/hr 03/10/18 18:00 03/11/18 11:28 Sod 3.375 gm/ Dextrose IVPB 100 mls/hr Q8H-IV RICH Administration Protocol Morphine Sulfate 2 mg 03/09/18 15:04 03/10/18 09:42 Morphine Injection - IVPUSH 2 mg Q4H PRN Administration PAIN LEVEL 7 - 10 Non-Formulary Medication 7.5 mg 03/10/18 10:00 03/11/18 10:43 Paroxetine Mesylate [Brisdelle] PO 7.5 mg DAILY RICH Administration Ondansetron HCl 4 mg 03/10/18 13:57 03/10/18 20:20 Zofran Injection IVPUSH 4 mg Q6H PRN Administration NAUSEA Potassium Chloride 40 meq 03/11/18 13:00 03/11/18 13:05 K-Dur - PO 03/11/18 19:01 40 meq Q6H RICH Administration Sodium Chloride 100 ml 03/10/18 13:00 03/11/18 10:00 Normal Saline - IV 100 ml DAILY RICH Administration ASSESSMENT/PLAN 53 year-old female with a PMH significant for diverticulitis s/p partial colectomy x 8 years, and multiple other abdominal surgeries (hysterectomy, oopherectomy, , hernia). Admitted for acute diverticulitis. Sepsis secondary to acute diverticulitis --on admission, Tm 102.2, WBC 14.2k, p130, acute diverticulitis on CT, no abscess seen --s/p partial colectomy x 8 years ago; this is first recurrence of diverticulitis since the surgery; last colonoscopy 2 years ago --WBC has trended to wnl, presently afebrile, blood cultures NGTD --continue empiric Zosyn (day #3) Elevated bilirubin --US consistent with fatty liver --trending down, likely elevated due to infection Hematuria --2/2 UA +40-60 RBCs --no signs or symptoms of UTI, pyelo --get repeat UA Hypokalemia --repleted FEN Fluids: NS@75mL/hr Electrolytes: replete as indicated Nutrition: trial of clears DVT prophylaxis: subq heparin Dispo: continues to require inpatient care. Full code. Visit type - Emergency Visit Emergency Visit: Yes ED Registration Date: 03/10/18 Care time: The patient presented to the Emergency Department on the above date and was hospitalized for further evaluation of their emergent condition. - New Patient This patient is new to me today: Yes Date on this admission: 03/11/18 - Critical Care Critical Care patient: No
[2018-03-11 16:59] LABS: PH,URINE 7.5 (4.5-8); URINE APPEARANCE Clear; URINE BILIRUBIN Negative (NEGATIVE); URINE COLOR Yellow; URINE GLUCOSE (UA) Negative (NEGATIVE); URINE KETONE 1+ (NEGATIVE); URINE LEUK ESTERASE Negative (NEGATIVE); URINE NITRITE Negative (NEGATIVE); URINE PROTEIN Negative (NEGATIVE); URINE UROBILINOGEN 0.2 (0.2-1.0)
[2018-03-11 18:20] LABS: URINE BACTERIA 1+ /hpf (NEGATIVE); URINE WBC 0-2 (0-5)
[2018-03-12] MEDS ORDERED: PIPERACILLIN/TAZOBACTAM 3.375 GM VIAL IVPB ONE ×4 (00:55→23:38)
[2018-03-12] MEDS: PIPERACILLIN/TAZOB 3.375 GM 3.375 GM in DEXTROSE 5%-WATER - 50 ML IVPB SCH ×3 (01:06→18:38)
[2018-03-12 07:41] LABS: MCHC 33.6 g/dl (32.0-36.0)
[2018-03-12 07:48] LABS: BASO % 0.5 % (0-2.0); EOS % 1.3 % (0-4.5); HEMATOCRIT 36.5 % (32.4-45.2); HEMOGLOBIN 12.3 GM/dl (10.7-15.3); LYMPH % 12.9 % (8-40); MCH 29.5 pg (25.7-33.7); MEAN CELL VOLUME 87.8 fl (80-96); MEAN PLT VOLUME 7.3 fl (7.5-11.1); MONO % 10.6 % (3.8-10.2); NEUT % 74.7 % (42.8-82.8); PLATELET COUNT 294 K/MM3 (134-434); RBC 4.16 M/mm3 (3.60-5.2); RDW 11.6 % (11.6-15.6); WHITE BLOOD COUNT 6.7 K/mm3 (4.0-10.8)
[2018-03-12 08:02] LABS: ALK PHOS 62 U/L (45-117); ANION GAP 8 MMOL/L (8-16); BILIRUBIN,TOTAL 1.2 mg/dl (0.2-1); BLOOD UREA NITROGEN 5 mg/dl (7-18); CALCIUM 8.5 mg/dl (8.5-10); CHLORIDE 107 mmol/L (98-107); CO2 23 mmol/L (21-32); CREATININE 0.7 mg/dl (0.55-1.3); GLUCOSE,RANDOM 87 mg/dl (74-106); MAGNESIUM 1.9 mg/dL (1.8-2.4); POTASSIUM 4.1 mmol/L (3.5-5.1); SGOT/AST 19 U/L (15-37); SGPT/ALT 18 U/L (13-61); SODIUM 138 mmol/L (136-145); TOT PROT 5.9 g/dl (6.4-8.2)
[2018-03-12 08:18] LABS: PH,URINE 8.5 (4.5-8); URINE APPEARANCE Clear; URINE BILIRUBIN Negative (NEGATIVE); URINE COLOR Amber; URINE GLUCOSE (UA) Negative (NEGATIVE); URINE KETONE 2+ (NEGATIVE); URINE LEUK ESTERASE Negative (NEGATIVE); URINE NITRITE Negative (NEGATIVE); URINE PROTEIN Negative (NEGATIVE); URINE UROBILINOGEN 0.2 (0.2-1.0)
[2018-03-12 08:19] LABS: URINE WBC 0-2 (0-5)
[2018-03-12] MEDS ORDERED: DEXTROSE 5%-WATER - 50 ML IVPB ONE ×3 (09:03→23:38)
[2018-03-12] MEDS: HEPARIN NA (PORCINE) 5,000 UNITS/ML 1ML VIAL SQ SCH ×3 (09:04→21:24)
[2018-03-12] MEDS: ACETAMINOPHEN 325 MG TABLET (FP) PO PRN ×2 (09:05→15:18)
[2018-03-12] MEDS: PAROXETINE MESYLATE 7.5 MG PO SCH (09:05)
--- NOTE | 2018-03-12 09:15 | CONS ---
DATE OF CONSULTATION: 03/11/2018 HISTORY: Asked to evaluate this 52-year-old female admitted with left lower quadrant pain and diverticulitis. The patient is a 52-year-old female with a history of diverticular disease in the past as well as diverticulitis requiring partial ? sigmoid or left-sided colectomy 8-9 years ago for recurrent diverticulitis. She has done well up until several days prior to admission when she again developed left lower quadrant pain with some crampiness and discomfort. The patient was admitted via the emergency room with a fever and abdominal tenderness and a CAT scan of the abdomen consistent with diverticulitis. The patient also was noted to have leukocytosis. The patient was admitted to the floor and started on IV antibiotics. She has been seen by Infectious Disease and is currently on IV antibiotics and feels somewhat better today. Her original pain 10/10 on a pain scale is now 5/10. Her initial white count of 11.4 is now 7.2 with hematocrit staying relatively stable at 40 to now 37.6. Her chemistries are unremarkable. She initially was noted to have a moderately elevated total bilirubin level with maximum of 2.6, which is now 1.5. She had a CT scan of the abdomen, which was consistent with some fatty change in the liver and a probable right lobe hepatic hemangioma. The CAT scan also was consistent with distal descending colon diverticulitis without abscess. In view of the abnormal bilirubin, a sonogram was obtained, which showed a normal liver size with some likely fatty infiltration. The patient currently appears to be doing better on Zosyn. PHYSICAL EXAMINATION: General: She is a well-developed, well-nourished female. HEENT: [place] conjunctivae. Lungs: Clear. Cardiac: Regular rate and rhythm. Abdomen: Soft, flat. There is mild tenderness on the left side of the abdomen to palpation without rebound. Patient with acute diverticulitis involving the descending/sigmoid colon. The patient is also status post partial resection in this area 8-9 years ago. Would continue patient on IV antibiotics. Begin patient on fluids either clear or full liquids at the present time and monitor. Hopefully will continue to improve and can be switched to oral antibiotics over the next several days. TERE MCNALLY M.D. [id number]
--- NOTE | 2018-03-12 09:27 | PN ---
Physical Exam: SUBJECTIVE: Patient seen and examined. Tolerating clears but still with watery diarrhea. Denies pain. OBJECTIVE: Vital Signs Period Temp Pulse Resp BP Sys/Mckeon Pulse Ox Last 24 Hr 98.1 F-99.3 F 65-72 16-20 103-124/50-69 94-98 GENERAL: The patient is awake, alert, and fully oriented, in no acute distress. LUNGS: Breath sounds equal, clear to auscultation bilaterally, no wheezes, no crackles, no accessory muscle use. HEART: Regular rate and rhythm, S1, S2 without murmur, rub or gallop. ABDOMEN: Mild LLQ and LMQ tenderness EXTREMITIES: 2+ pulses, warm, well-perfused, no edema. NEUROLOGICAL: Cranial nerves II through XII grossly intact. Laboratory Results - last 24 hr 03/11/18 03/11/18 03/11/18 10:01 10:01 16:45 WBC 7.2 RBC 4.30 Hgb 12.7 Hct 37.6 MCV 87.4 MCH 29.5 MCHC 33.7 RDW 11.8 Plt Count 311 MPV 7.1 L Absolute Neuts (auto) 5.8 Neutrophils % No Result Required. Neutrophils % (Manual) 80.0 Band Neutrophils % 2.0 Lymphocytes % No Result Required. Lymphocytes % (Manual) 13.0 Monocytes % Monocytes % (Manual) 4 Eosinophils % Eosinophils % (Manual) 1.0 Basophils % Platelet Estimate Adequate Sodium 137 Potassium 3.3 L Chloride 104 Carbon Dioxide 23 Anion Gap 10 BUN < 5 L Creatinine 0.7 Creat Clearance w eGFR > 60 Random Glucose 110 H Calcium 8.6 Magnesium 1.9 Total Bilirubin 1.5 H Direct Bilirubin 0.2 AST 22 ALT 19 Alkaline Phosphatase 70 Total Protein 6.1 L Albumin 3.2 L Urine Color Yellow Urine Appearance Clear Urine pH 7.5 Ur Specific [place] 1.015 Urine Protein Negative Urine Glucose (UA) Negative Urine Ketones 1+ H Urine Blood 1+ H Urine Nitrite Negative Urine Bilirubin Negative Urine Urobilinogen 0.2 Ur Leukocyte Esterase Negative Urine RBC 2-4 Urine WBC 0-2 Urine Bacteria 1+ 03/12/18 03/12/18 03/12/18 06:30 06:30 06:58 WBC 6.7 RBC 4.16 Hgb 12.3 Hct 36.5 MCV 87.8 MCH 29.5 MCHC 33.6 RDW 11.6 Plt Count 294 MPV 7.3 L Absolute Neuts (auto) 5.0 Neutrophils % 74.7 Neutrophils % (Manual) Band Neutrophils % Lymphocytes % 12.9 Lymphocytes % (Manual) Monocytes % 10.6 H Monocytes % (Manual) Eosinophils % 1.3 Eosinophils % (Manual) Basophils % 0.5 Platelet Estimate Sodium 138 Potassium 4.1 Chloride 107 Carbon Dioxide 23 Anion Gap 8 BUN 5 L Creatinine 0.7 Creat Clearance w eGFR > 60 Random Glucose 87 Calcium 8.5 Magnesium 1.9 Total Bilirubin 1.2 H Direct Bilirubin AST 19 ALT 18 Alkaline Phosphatase 62 Total Protein 5.9 L Albumin 3.0 L Urine Color Olivia Urine Appearance Clear Urine pH 8.5 H Ur Specific [place] 1.020 Urine Protein Negative Urine Glucose (UA) Negative Urine Ketones 2+ H Urine Blood 1+ H Urine Nitrite Negative Urine Bilirubin Negative Urine Urobilinogen 0.2 Ur Leukocyte Esterase Negative Urine RBC 5-10 Urine WBC 0-2 Urine Bacteria Active Medications Generic Name Dose Route Start Last Admin Trade Name Freq PRN Reason Stop Dose Admin Acetaminophen 1,000 mg 03/10/18 01:00 03/10/18 09:43 Ofirmev Injection - IVPB 1,000 mg Q6H PRN Administration FEVER Acetaminophen 650 mg 03/10/18 11:40 03/12/18 09:05 Tylenol - PO 650 mg Q6H PRN Administration PAIN LEVEL 1 - 3 Heparin Sodium (Porcine) 5,000 unit 03/09/18 22:00 03/12/18 09:04 Heparin - SQ Not Given BID RICH Sodium Chloride 1,000 mls @ 75 mls/hr 03/09/18 12:30 03/11/18 12:30 Normal Saline - IV 75 mls/hr ASDIR RICH Administration Piperacillin Sod/Tazobactam 50 mls @ 100 mls/hr 03/10/18 18:00 03/12/18 09:04 Sod 3.375 gm/ Dextrose IVPB 100 mls/hr Q8H-IV RICH Administration Protocol Non-Formulary Medication 7.5 mg 03/10/18 10:00 03/12/18 09:05 Paroxetine Mesylate [Brisdelle] PO 7.5 mg DAILY RICH Administration Ondansetron HCl 4 mg 03/10/18 13:57 03/10/18 20:20 Zofran Injection IVPUSH 4 mg Q6H PRN Administration NAUSEA Sodium Chloride 100 ml 03/10/18 13:00 03/11/18 10:00 Normal Saline - IV 100 ml DAILY RICH Administration ASSESSMENT/PLAN: 53 year-old female with a PMH significant for diverticulitis s/p partial colectomy x 8 years, and multiple other abdominal surgeries (hysterectomy, oopherectomy, , hernia). Admitted for acute diverticulitis. Sepsis secondary to acute diverticulitis --still with watery diarrhea, pain resolved --WBC has trended to wnl, presently afebrile, blood cultures NGTD --continue empiric Zosyn (day #4) --surgery following; patient is s/p partial colectomy x [address] Zion Self ([phone]) at [facility]; discussed with Dr. Feliciano; a recurrence of diverticultis following a partial colectomy would be unusual; working on getting records; last colonoscopy 2 years ago Elevated bilirubin --US consistent with fatty liver --trending down, likely elevated due to infection Hematuria --repeat urines trace RBCs Hypokalemia --resolved FEN Fluids: NS@75mL/hr Electrolytes: replete as indicated Nutrition: trial of clears DVT prophylaxis: subq heparin Dispo: continues to require inpatient care. Full code. Visit type - Emergency Visit Emergency Visit: Yes ED Registration Date: 03/10/18 Care time: The patient presented to the Emergency Department on the above date and was hospitalized for further evaluation of their emergent condition. - New Patient This patient is new to me today: No - Critical Care Critical Care patient: No
[2018-03-12] MEDS: SODIUM CHLORIDE 1,000 ML IV SCH (12:00)
--- NOTE | 2018-03-12 14:05 | PN ---
Progress Note (short form) - Note Progress Note: 53yo admitted to the hospital for sigmoid diverticulitis. Pt seen and examined at bedside. Pt states abd pain much improved. Denies n/v, fever, chills. Pt states that she had some diarrhea, but no bloody stool. Pt states she is tolerating clears well. Last Vital Signs Temp Pulse Resp BP Pulse Ox 98.2 F 58 L 16 108/61 98 03/12/18 14:02 03/12/18 14:02 03/12/18 14:02 03/12/18 14:02 03/12/18 14:02 CBC, BMP 03/12/18 06:30 03/12/18 06:30 PE: Gen: A&O x3 Resp: breathing comfortably ABd: soft, nontender, nondistended. Problem List - Problems (1) Diverticulitis Assessment/Plan: Plan -cont abx as per ID -adv diet as tolerated -OOB/ambulate Code(s): K57.92 - DVTRCLI OF INTEST, PART UNSP, W/O PERF OR ABSCESS W/O BLEED
--- NOTE | 2018-03-12 14:36 | PN ---
Progress Note, Physician - Current Medication List Current Medications: Active Medications Acetaminophen (Ofirmev Injection -) 1,000 mg IVPB Q6H PRN PRN Reason: FEVER Last Admin: 03/10/18 09:43 Dose: 1,000 mg Acetaminophen (Tylenol -) 650 mg PO Q6H PRN PRN Reason: PAIN LEVEL 1 - 3 Last Admin: 03/12/18 09:05 Dose: 650 mg Heparin Sodium (Porcine) (Heparin -) 5,000 unit SQ BID RICH Last Admin: 03/12/18 09:04 Dose: Not Given Sodium Chloride (Normal Saline -) 1,000 mls @ 75 mls/hr IV ASDIR RICH Last Admin: 03/11/18 12:30 Dose: 75 mls/hr Piperacillin Sod/Tazobactam (Sod 3.375 gm/ Dextrose) 50 mls @ 100 mls/hr IVPB Q8H-IV RICH; Protocol Last Admin: 03/12/18 09:04 Dose: 100 mls/hr Non-Formulary Medication (Paroxetine Mesylate [Brisdelle]) 7.5 mg PO DAILY RICH Last Admin: 03/12/18 09:05 Dose: 7.5 mg Ondansetron HCl (Zofran Injection) 4 mg IVPUSH Q6H PRN PRN Reason: NAUSEA Last Admin: 03/10/18 20:20 Dose: 4 mg Sodium Chloride (Normal Saline -) 100 ml IV DAILY RICH Last Admin: 03/11/18 10:00 Dose: 100 ml - Objective Vital Signs: Vital Signs Temperature 98.2 F 03/12/18 14:02 Pulse Rate 58 L 03/12/18 14:02 Respiratory Rate 16 03/12/18 14:02 Blood Pressure 108/61 03/12/18 14:02 O2 Sat by Pulse Oximetry (%) 98 03/12/18 14:02 Labs: CBC, BMP 03/12/18 06:30 03/12/18 06:30
[2018-03-12 22:09] VITALS: TEMP 98.6
[2018-03-13] MEDS: PIPERACILLIN/TAZOB 3.375 GM 3.375 GM in DEXTROSE 5%-WATER - 50 ML IVPB SCH ×2 (01:04→09:36)
--- NOTE | 2018-03-13 07:29 | PN ---
Progress Note (short form) - Note Progress Note: 53yo admitted to the hospital for sigmoid diverticulitis. Pt seen and examined at bedside. Pt states abd pain is mostly resolved. She is oob and tolerating a regular diet this morning and she is having normal non-bloody BMs. She Denies CP , COB, n/v, fever, chills. Vital Signs Temp 98.6 F 03/13/18 06:00 Pulse 50 L 03/13/18 06:00 Resp 18 03/13/18 06:00 BP 122/68 03/13/18 06:00 Pulse Ox 98 03/13/18 06:23 Intake & Output 03/12/18 03/12/18 03/13/18 11:59 23:59 11:59 Intake Total 1075 1450 875 Balance 1075 1450 875 Intake: IV 600 900 825 Normal Saline - 1,000 ml 600 900 825 @ 75 mls/hr IV ASDIR RICH Rx#:[id number] IVPB 100 200 50 Oral 375 350 Other: Voiding Method Toilet Toilet # Unmeasured Voids Void 2 Bowel Movement No CBC, BMP Urine Test Results Urine Color Olivia 03/12/18 06:58 Urine Appearance Clear 03/12/18 06:58 Urine pH 8.5 (4.5-8) H 03/12/18 06:58 Ur Specific [place] 1.020 (1.010-1.035) 03/12/18 06:58 Urine Protein Negative (NEGATIVE) 03/12/18 06:58 Urine Glucose (UA) Negative (NEGATIVE) 03/12/18 06:58 Urine Ketones 2+ (NEGATIVE) H 03/12/18 06:58 Urine Blood 1+ (NEGATIVE) H 03/12/18 06:58 Urine Nitrite Negative (NEGATIVE) 03/12/18 06:58 Urine Bilirubin Negative (NEGATIVE) 03/12/18 06:58 Ur Leukocyte Esterase Negative (NEGATIVE) 03/12/18 06:58 Urine RBC 5-10 /hpf (0-3) 03/12/18 06:58 Urine WBC 0-2 (0-5) 03/12/18 06:58 Ur Epithelial Cells 2+ /HPF 03/09/18 07:31 Urine Bacteria 1+ /hpf (NEGATIVE) 03/11/18 16:45 PE: Gen: A&O x3, NAD Resp: unlabored resp on RA ABd: soft, nontender, nondistended, no guarding or rigidity. Problem List - Problems (1) Diverticulitis Assessment/Plan: Patient with resolving diverticulitis tolerating diet and having BMs. Assessment/Plan: Plan -cont abx as per ID- -OOB/ambulate -D/c planning for home -reconsult surgery PRN Evaluation and plan discussed with Dr Feliciano Code(s): K57.92 - DVTRCLI OF INTEST, PART UNSP, W/O PERF OR ABSCESS W/O BLEED
[2018-03-13] MEDS ORDERED: DEXTROSE 5%-WATER - 50 ML IVPB ONE (09:30)
[2018-03-13] MEDS ORDERED: PIPERACILLIN/TAZOBACTAM 3.375 GM VIAL IVPB ONE (09:30)
[2018-03-13] MEDS: PAROXETINE MESYLATE 7.5 MG PO SCH (09:36)
[2018-03-13] MEDS: HEPARIN NA (PORCINE) 5,000 UNITS/ML 1ML VIAL SQ SCH (09:37)
[2018-03-13 09:39] VITALS: BP 114/72; PULSE 70
--- NOTE | 2018-03-13 10:29 | DS ---
Physical Exam: SUBJECTIVE: Patient seen and examined. Feeling well, anxious to go home. Tolerating full liquids. OBJECTIVE: Vital Signs Period Temp Pulse Resp BP Sys/Mckeon Pulse Ox Last 24 Hr 98.2 F-98.6 F 50-74 16-20 108-123/61-72 97-98 PHYSICAL EXAM GENERAL: The patient is awake, alert, and fully oriented, in no acute distress. LUNGS: Breath sounds equal, clear to auscultation bilaterally, no wheezes, no crackles, no accessory muscle use. HEART: Regular rate and rhythm, S1, S2 without murmur, rub or gallop. ABDOMEN: Soft, nontender, nondistended, normoactive bowel sounds, no guarding, no rebound EXTREMITIES: 2+ pulses, warm, well-perfused, no edema. NEUROLOGICAL: Cranial nerves II through XII grossly intact. Normal speech, gait not observed. PSYCH: Normal mood, normal affect. SKIN: Warm, dry, normal turgor LABS CBCD WBC 6.7 K/mm3 (4.0-10.8) 03/12/18 06:30 RBC 4.16 M/mm3 (3.60-5.2) 03/12/18 06:30 Hgb 12.3 GM/dl (10.7-15.3) 03/12/18 06:30 Hct 36.5 % (32.4-45.2) 03/12/18 06:30 MCV 87.8 fl (80-96) 03/12/18 06:30 MCHC 33.6 g/dl (32.0-36.0) 03/12/18 06:30 RDW 11.6 % (11.6-15.6) 03/12/18 06:30 Plt Count 294 K/MM3 (134-434) 03/12/18 06:30 MPV 7.3 fl (7.5-11.1) L 03/12/18 06:30 CMP Sodium 138 mmol/L (136-145) 03/12/18 06:30 Potassium 4.1 mmol/L (3.5-5.1) 03/12/18 06:30 Chloride 107 mmol/L (98-107) 03/12/18 06:30 Carbon Dioxide 23 mmol/L (21-32) 03/12/18 06:30 Anion Gap 8 MMOL/L (8-16) 03/12/18 06:30 BUN 5 mg/dl (7-18) L 03/12/18 06:30 Creatinine 0.7 mg/dl (0.55-1.3) 03/12/18 06:30 Creat Clearance w eGFR > 60 (>60) 03/12/18 06:30 Calcium 8.5 mg/dl (8.5-10) 03/12/18 06:30 Total Bilirubin 1.2 mg/dl (0.2-1) H 03/12/18 06:30 AST 19 U/L (15-37) 03/12/18 06:30 ALT 18 U/L (13-61) 03/12/18 06:30 Alkaline Phosphatase 62 U/L (45-117) 03/12/18 06:30 Total Protein 5.9 g/dl (6.4-8.2) L 03/12/18 06:30 Albumin 3.0 g/dl (3.4-5.0) L 03/12/18 06:30 HOSPITAL COURSE: Date of Admission:03/10/18 Date of Discharge: 03/13/18 Pre hospital course 53 year-old female with a PMH significant for diverticulitis s/p sigmoid colon resection with EEA 05/2010 (Dr. Maikel Self, [facility]). Patient presented to the emergency department with a complaint of LLQ and left flank pain x 4 days. Pain was crampy and became progressively worse. Denied having fever, sweats, chills. Sepsis secondary to acute diverticulitis --on admission, Tm 102.2, WBC 14.2k, p130, acute diverticulitis on CT, no abscess seen --s/p partial colectomy x 8 years ago; this is first recurrence of diverticulitis since the surgery; last colonoscopy 2 years ago --WBC trended to wnl, defervesced on hospital day #1, blood cultures NGTD --was treated with Zosyn x 4 days; discharged on augmentin to complete 14 days of treatment Elevated bilirubin --US consistent with fatty liver --trending down, was likely elevated due to infection Hematuria --iniital UA on 03/09 showed 40-60 RBCs (no salas attempts); there were nosigns or symptoms of UTI, pyelo --repeat urines showed just a few RBCs; recommended outpatient followup with PCP Minutes to complete discharge: 35 Discharge Summary Reason For Visit: DIVERTICULITIS Current Active Problems Diverticulitis (Acute) Condition: Improved - Instructions Diet, Activity, Other Instructions: A prescription has been sent to your pharmacy for augmentin which is an antibiotic. Take this medication as prescribed and be sure to finish all the medication. During your hospital stay several urine samples were collected which showed you had some red blood cells in your urine. You should follow up with your primary care provider to have a repeat urine collected and analyzed for the presence of hematuria. Advance your diet very slowly. Maintain a low-fiber diet and eat only foods that agree with you. Stay well-hydrated. You should follow up with your GI specialist within 2 weeks of your discharge. Return to the emergency department for any new or worsening symptoms. Referrals: Rajeev Lantigua [Primary Care Provider] - Disposition: HOME - Home Medications Comprehensive Discharge Medication List: Ambulatory Orders Paroxetine Mesylate [Brisdelle] 7.5 mg PO DAILY 03/09/18 This patient is new to me today: No Emergency Visit: Yes ED Registration Date: 03/10/18 Care time: The patient presented to the Emergency Department on the above date and was hospitalized for further evaluation of their emergent condition. Critical Care patient: No - Discharge Referral Referred to [facility] Med P.C.: No
--- NOTE | 2018-03-13 10:35 | PN ---
Progress Note, Physician History of Present Illness: patient stable doing well no pain tolerated orally - Current Medication List Current Medications: Active Medications Acetaminophen (Ofirmev Injection -) 1,000 mg IVPB Q6H PRN PRN Reason: FEVER Last Admin: 03/10/18 09:43 Dose: 1,000 mg Acetaminophen (Tylenol -) 650 mg PO Q6H PRN PRN Reason: PAIN LEVEL 1 - 3 Last Admin: 03/12/18 15:18 Dose: 650 mg Heparin Sodium (Porcine) (Heparin -) 5,000 unit SQ BID [facility] Last Admin: 03/13/18 09:37 Dose: Not Given Sodium Chloride (Normal Saline -) 1,000 mls @ 75 mls/hr IV ASDIR RICH Last Admin: 03/12/18 12:00 Dose: 75 mls/hr Piperacillin Sod/Tazobactam (Sod 3.375 gm/ Dextrose) 50 mls @ 100 mls/hr IVPB Q8H-IV RICH; Protocol Last Admin: 03/13/18 09:36 Dose: 100 mls/hr Non-Formulary Medication (Paroxetine Mesylate [Brisdelle]) 7.5 mg PO DAILY [facility] Last Admin: 03/13/18 09:36 Dose: 7.5 mg Ondansetron HCl (Zofran Injection) 4 mg IVPUSH Q6H PRN PRN Reason: NAUSEA Last Admin: 03/10/18 20:20 Dose: 4 mg Sodium Chloride (Normal Saline -) 100 ml IV DAILY [facility] Last Admin: 03/11/18 10:00 Dose: 100 ml - Objective Vital Signs: Vital Signs Temperature 98.6 F 03/13/18 09:38 Pulse Rate 70 03/13/18 09:38 Respiratory Rate 18 03/13/18 09:38 Blood Pressure 114/72 03/13/18 09:38 O2 Sat by Pulse Oximetry (%) 98 03/13/18 08:06 Constitutional: Yes: No Distress, Calm Cardiovascular: Yes: Regular Rate and Rhythm Respiratory: Yes: Regular, CTA Bilaterally Gastrointestinal: Yes: Normal Bowel Sounds, Soft Musculoskeletal: Yes: WNL Extremities: Yes: WNL Neurological: Yes: Alert, Oriented Psychiatric: Yes: Alert, Oriented Labs: CBC, BMP 03/12/18 06:30 03/12/18 06:30 Assessment/Plan Problem List - Problems (1) Diverticulitis Code(s): K57.92 - DVTRCLI OF INTEST, PART UNSP, W/O PERF OR ABSCESS W/O BLEED Assessment/Plan 52 y.o. female with PMH of diverticulitis s/p partial colectomy and hysterectomy presents with c/o severe LLQ/flank tenderness. Febrile to 102.2 last night and leukocytosis and hypotension Acute diverticulitis can change to oral levaquin and flagyl for 5 more days close monitoring rest as per the team
--- NOTE | 2018-03-13 16:21 | PN ---
Progress Note (short form) - Note Progress Note: Patient feels better this am; switching to PO antibiotics with plans for discharge today. No fever or chills and abdominal pain has resolved. Instructed to avoid fiber for several weeks (to stay on low residue diet) Normal WBC Afebrile VSS Abdomen soft +BS nontender Clinically improved; for discharge on PO antibiotics later today with plans for outpatient followup.
== END 2018-03-13 14:31 | disposition home or self-care (01) | DRG 872 ==
LOC: FER 06:58 → FM/S 11:44 → UNDODISOB 03-10 11:26 → OBSVTOIN 03-10 14:12
PROVIDERS: ATTEND Nurse Practitioner Acute Care
DX: A41.9 Sepsis, unspecified organism (principal); K57.32 Diverticulitis of large intestine without perforation or abscess without bleeding; E87.6 Hypokalemia; K76.0 Fatty (change of) liver, not elsewhere classified; R31.9 Hematuria, unspecified; Z78.0 Asymptomatic menopausal state; Z90.710 Acquired absence of both cervix and uterus; Z90.49 Acquired absence of other specified parts of digestive tract
CPT/HCPCS: 36415; 74177-TC; 76705-TC; 80048; 80053; 80076; 81003; 81015; 82248; 83605; 83615; 83690; 83735; 85025; 85027; 87040; 87086; 93005; 99285-25; G0378; J0131; J1644; J7030